=== PATIENT | female | born 1970 | race Caucasian/White ===

== ENCOUNTER 2016-11-15 17:57 | Inpatient (IN) | payer OTHER ==
[~2016-11-15] VITALS: Ht 167.6 cm; Wt 91.8 kg
--- NOTE | ~2016-11-15 | ECH ---
Transthoracic Echocardiography Report (TTE) Demographics Patient Name JANICE ESPINAL Date of Study 11/16/2016 Patient Number [id number] Visit Number [id number] Date of 1970 Room Number 430 Accession Number [id number] Gender Female Age 46 year(s) Referring Harvinder Sullivan Pasta Press Operator Patrizia Guzman [facility] Physician Physician Interpreting Nile [employer] Speculator Physician Supervising Ordering Physician Harvinder Sullivan MD, MD/P Nurse Stress Taper Operator Conclusions Summary Technically good exam. The estimated left ventricular ejection fraction is 15-20%. Global hypokinesis. The left ventricle is severly dilated . Normal right ventricular size. Mildly reduced right ventricular function. The left atrium is mildly dilated by LA volume index measurement. The right atrium is mildly dilated. Moderate mitral regurgitation by color Doppler. There is trivial aortic regurgitation by color Doppler. Moderate tricuspid regurgitation by color Doppler. There is mild pulmonary hypertension. The pulmonary pressure (RVSP) is 39 mmHg. Trivial pulmonic valve regurgitation by color Doppler. Recommendation The patient will be given the results of this study by the physician who ordered the exam. Procedure Type of Study TTE procedure:Echo Complete SF. Procedure Date Date: 11/16/2016 Start: 11:31 AM Technical Quality: Good visualization Indications:Shortness of breath and Pleural effusion. Additional Indications:elevated BNP Appropriate Use Criteria: 9 Height: 66 inches Weight: 218 pounds BSA: 2.07 m Rhythm: Within normal limits HR: 101 bpm BP: 45331/NaN mmHg M-Mode/2D Measurements LV Diastolic Dimension: 6.51 cm LV Systolic Dimension: 6.47 cm LV Septum Diastolic: 1.01 cm LV PW Diastolic: 0.81 cm AO Root Dimension: 2.2 cm Cardiac Output: 2.04 l/min LA Dimension: 4.47 cm Cardiac Index: 0.99 l/min*m RV Diastolic Dimension: 3.49 cm LA volume index: 39 ml/m LVOT: 1.79 cm LVOT VTI: 8.02 cm RV Base: 3.8 cm LV Stroke volume: 20.17 ml RV Mid: 2.2 cm LV Stroke volume index: 9.74 ml/m RV Length: 7.5 cm TAPSE: 1.4 cm TDI-S': 9 cm/s Doppler Measurements AV Peak Velocity: 0.7 m/s MV Peak E-Wave: 0.79 m/s AV Peak Gradient: 1.96 mmHg AV Mean Gradient: 1.29 mmHg LVOT Peak Velocity: 0.01 m/s AV Area (Continuity):1.55 cm PV Peak Velocity: 0.57 m/s TR Velocity:2.91 m/s PV Peak Gradient: 1.29 mmHg TR Gradient:33.87 mmHg Estimated PASP: 38.87 mmHg Estimated RAP:5 mmHg Estimated RVSP: 39 mmHg RA Area: 18.62 cm Findings Left Ventricle The left ventricle is severly dilated . Diastolic function indeterminate. Right Ventricle Normal right ventricular size. Mildly reduced right ventricular function. Left Atrium The left atrium is mildly dilated by LA volume index measurement. Right Atrium The right atrium is mildly dilated. Mitral Valve Normal mitral valve structure and function. Moderate mitral regurgitation by color Doppler. Aortic Valve Normal aortic valve structure and function. There is trivial aortic regurgitation by color Doppler. Tricuspid Valve Normal appearing tricuspid valve. Moderate tricuspid regurgitation by color Doppler. There is mild pulmonary hypertension. The pulmonary pressure (RVSP) is 39 mmHg. Pulmonic Valve Normal pulmonic valve structure and function. Trivial pulmonic valve regurgitation by color Doppler. Pericardial Effusion No evidence of pericardial effusion. Miscellaneous Visualized portions of the aortic root and ascending aorta appear normal in size. RVOT diameter 2.5cm. Contractility Score LV regional wall motion:(0-Non visualized 1-Normal 2-Hypokinesis 3-Akinesis 4-Dyskinesis 5-Aneurysm) Signature
--- NOTE | ~2016-11-15 | CATH ---
Cardiac Diagnostic Report Demographics Patient Name TEDDY Acevedo Gender Female Date of 1970 Age 46 year(s) Patient Number [id number] Date of Study 11/17/2016 Visit Number [id number] Room Number 430 Corporate ID Ht 167.64 cm Wt 98.88 kg Accession Number [id number] BSA 2.07 m kg/m Referring Harvinder Sullivan Primary Physician Physician MD Rene Sullivan APRN Performing Henry Bennett MD Secondary Physician Physician Diagnostic Henry Bennett MD Assisting Physician Physician Interventional Physician Java Development Team Lead Physician Findings and Conclusions Diagnostic Findings and Conclusion 1) Normal Coronary arteries 2) Elevated LVEDP 3) Reduced cardiac output related to her systolic heart failure Diagnostic Recommendations We will set Coby up to see one of our heart failure specialist for ongoing care and treatment of her systolic heart failure. Appointment at [facility] clinic 7 days post discharge, for a site check and follow up visit. Procedure Description The patient was brought to the diagnostic cardiac catheterization laboratory in the fasting, non-sedated state. Informed consent was obtained in the written and verbal form after the risks and benefits were explained. The patient had no further questions and agreed to proceed. The planned puncture-incision site(s) were shaved and prepped with ChloraPrep and draped in the usual sterile manner. Conscious sedation, supplemental oxygen, and pain control medications were delivered by a registered nurse under physician guidance. Surface ECG rhythm, blood pressure measurement, and pulse oximetry were monitored throughout the procedure. Arterial access. The access site was infiltrated with 1% lidocaine. The right radial vessel was entered with the Seldinger technique. A 6 Fr sheath was advanced into the vessel and used for catheter placement. Venous access. The right jugular access site was infiltrated with 2% lidocaine. Access was not able to be obtained, so, the right femoral vein access site was infiltrated with 2% lidocaine. The right femoral vein was entered with the Seldinger technique. A 7 Fr sheath was advanced into the vessel and used for catheter placement. Right heart catheterization. A [place] Caroline catheter was successfully advanced to the right atrium, right ventricle, pulmonary artery, and pulmonary artery wedge position under fluoroscopic guidance. Resting hemodynamics were obtained. Measurements included pressures, arterial and venous oxygen saturation samples, and cardiac output. The [place]eld[place]ia was removed without difficulty. Left heart catheterization. A pigtail catheter was advanced across the aortic valve to the left ventricle under fluoroscopic guidance. Resting hemodynamics were obtained. Selective left coronary angiography. A FL3.5 catheter was advanced into the left coronary vessel ostium under Fluoroscopic guidance. Contrast was injected by hand. Images were obtained in multiple projections. Selective right coronary angiography. A JR4 catheter was advanced into the right coronary vessel ostium under fluoroscopic guidance. Contrast was injected by hand. Images were obtained in multiple projections. Arterial and Venous hemostasis was achieved. A TR Band, with 10 cc air, was used on the radial site. Manual compression was held on the venous site. The patient was transferred back to her regular nursing floor room via cart accompanied by a nurse. The patient left the laboratory in stable condition. Diagnostic Cath Status: Urgent Procedure Procedure Type Diagnostic procedure:Angiography:, Right and Left Heart Cath, Coronary Angios Indications: Shortness of breath, Cardiomyopathy, Hyperlipidemia, Hypertension, Diabetes, systolic heart failure and Cardiomegaly. The procedure was explained in detail to the patient. Risks, complications and alternative treatments were reviewed. Written consent was obtained. Medications Reviewed with Patient prior to Procedure. Complications: No Complication. Angiographic Findings Dominance: Right Cardiac Arteries and Lesion Findings LMCA: Normal (0% Stenosis). LAD: Normal (0% Stenosis). LCx: Normal (0% Stenosis). RCA: Normal (0% Stenosis). Procedure Data Procedure Date Date: 11/17/2016Start: 08:04 AMEnd: 09:14 AM Entry Locations - Percutaneous access was performed through the Right Radial artery (Primary location). A 6 Fr sheath was inserted. Hemostasis was successfully obtained using a TR band. - Percutaneous access was performed through the Right Femoral vein. A 7 Fr sheath was inserted. Hemostasis was successfully obtained using Manual Compression. Procedure Medications Order and Administration + + +-------+-------+ !Time !Medication !Dosage !Route ! + + +-------+-------+ !11/17/2016 !SF Radial Cocktail: 200mcg Nitro, 2.5 mg ! !I.A. ! !08:10 AM !Verapamil, 5000u Heparin ! ! ! + + +-------+-------+ !11/17/2016 !Versed !1 mg !I.V. ! !08:14 AM ! ! ! ! + + +-------+-------+ !11/17/2016 !Fentanyl !25 mcg !I.V. ! !08:14 AM ! ! ! ! + + +-------+-------11/17/2016 !Fentanyl !50 mcg !I.V. ! !08:46 AM ! ! ! ! + + +-------+-------+ !11/17/2016 !Versed !1 mg !I.V. ! !08:46 AM ! ! ! ! + + +-------+-------+ !11/17/2016 !Versed !1 mg !I.V. ! !08:47 AM ! ! ! ! + + +-------+-------+ Devices Used - ACATH 6FR PIG 145 110CM CATHETERwas used for:Left ventriculography. - ACATH 6FR FL3.5 CATHETER 100CMwas used for:Left coronary angiography. - ACATH 6F FR4 CATHETER 100CMwas used for:Right coronary angiography. Contrast Material - Isovue 51361 ml Fluoroscopy Time: Diagnostic: 3:42 minutes. Total: 3:42 minutes. Fluoroscopy Dose: Diagnostic: 410 mGy. Total: 410 mGy. Estimated Blood Loss: 10 ml. Medical History Allergies - Cephalosporines. Risk Factors The patient risk factors include:hypercholesterolemia, hypertension, orally-treated diabetes mellitus, last creatinine: 1.3 mg/dl, creatinine clearance: 86.21 ml/min and dyslipidemia. Admission Data Admission Date: 11/15/2016 Admission Time: 05:57 PM Clinical Evaluation Leading to Procedure - The patient has been in a state of heart failure within the past two weeks. - The reason for the patient's laborer rags visit is evaluation of cardiomyopathy and/or evaluation of left ventricular systolic dysfunction. Diagnosed on 11/16/2016 02:00 PM. - The reason for the patient's laborer rags visit is evaluation of cardiomyopathy and/or evaluation of left ventricular systolic dysfunction. Hemodynamics Condition: Rest O2 Consumption: Estimated: 232.26Heart Rate: 102 bpm Oxygen Saturation +--------+-----+----+ +----+ + !Location!pCO2 !pO2 !% Saturation !Hgb !O2 Content ! +--------+-----+----+ +----+ + !LV ! ! !94.3 !11.5! ! +--------+-----+----+ +----+ + !LV ! ! !94.4 !11.5! ! +--------+-----+----+ +----+ + !PA ! ! !37.8 !11.5! ! +--------+-----+----+ +----+ + !PA ! ! !37.6 !11.5! ! +--------+-----+----+ +----+ + !AO ! ! !94.4 !11.5! ! +--------+-----+----+ +----+ + Pressures (mmHg) +-----+ + !Site !Pressure ! +-----+ + !AO !/ (-48) ! +-----+ + !RA !18 (14) ! +-----+ + !AO !/ (-50) ! +-----+ + !RV !49/ ,14 ! +-----+ + !AO !/ (-56) ! +-----+ + !PCW !29/35 (28) ! +-----+ + !AO !/ (-57) ! +-----+ + !PA !48/23 (37) ! +-----+ + !LV !107/13 ,24 ! +-----+ + !LV !115/14 ,27 ! +-----+ + !RV !53/9 ,20 ! +-----+ + !AO !108/78 (93) ! +-----+ + !LV !107/14 ,27 ! +-----+ + Cardiac Output + + +-----+ !Time !Cardiac Output (l/min) !Use ! + + +-----+ !11/17/2016 08:42 AM !2.9 !True ! + + +-----+ !11/17/2016 08:43 AM !2.65 !True ! + + +-----+ !11/17/2016 08:43 AM !2.93 !True ! + + +-----+ Cardiac Output +-------+ + + + !Method !CO (l/min) !CI (l/min/m2) !SV (ml) ! +-------+ + + + !Dragan !2.61 !1.3 !25.57 ! +-------+ + + + !Thermal!2.213790 !1.4 !26.92 ! +-------+ + + + Valve Gradients and Areas + +--------+--------+--------+---------+ + + !Valve !Peak !Mean !Area !Index !Flow !Source ! + +--------+--------+--------+---------+ + + !Aortic !0 !0 ! ! !235.56 !Dragan ! + +--------+--------+--------+---------+ + + !Aortic !0 !0 ! ! !255.11 !Thermal ! + +--------+--------+--------+---------+ + + Shunts Oxygen Values O2 Capacity 156.4 O2 Consumption 232.26 Flows (l/min) Qs 2.61 Qe/Qp 1 Qp 2.61 Qp/Qs 1 Qe 2.61 Vascular Resistance (dynes x sec x cm-5) + +-----+-----+-----+----+---------+-------+ !CO method !TSVR !SVR !TPVR !PVR !TPVR/TSVR!PVR/SVR! + +-----+-----+-----+----+---------+-------+ !Dragan !35.81!30.62!14.01!3.36!0.39 !0.11 ! + +-----+-----+-----+----+---------+-------+ !Thermal !33.07!28.27!12.93!3.11!0.39 !0.11 ! + +-----+-----+-----+----+---------+-------+ !Qp or Qs !35.81!30.62!14.01!3.36!0.39 !0.11 ! + +-----+-----+-----+----+---------+-------+ Signatures
--- NOTE | 2016-11-17 14:02 | CO ---
ADMIT: 11/15/2016 RM/LOC: 430 [facility] MR#: [id number] [address] [facility] [address] [place] [id number] JANICE ESPINAL [address] [facility] [address] [place] [address] Consultation SEX: F AGE: 46 : 1970 DATE OF CONSULTATION: 11/16/2016 ATTENDING PHYSICIAN: Luis Fernando Blanton CONSULTING PHYSICIAN: Ezekiel Dowd MD REASON FOR CONSULTATION: Shortness of breath. PRESENT ILLNESS: Janice is a pleasant 46-year-old female, who I was asked to see in consultation from Dr. Blanton regarding shortness of breath. Janice has no prior cardiac history but does have history of diabetes, hypertension, and hyperlipidemia. She states over the last 3 weeks she had progressive shortness of breath to the point she could only walk across the room and she would get short of breath. She presented to Dr. Blanton yesterday and was admitted to the hospital. She has noted increased lower extremity edema. She said last week her legs were very swollen, but they have improved. She denies any chest pain, but does have orthopnea and PND. She denies any recent illnesses or other change in her health. No recent change in her medications. PAST MEDICAL HISTORY: 1. History of hypertension. 2. Hyperlipidemia. 3. Diabetes mellitus. 4. History of depression. PAST SURGICAL HISTORY: History of appendectomy, history of lumpectomy, history of 2 prior C-sections, and history of a skin cancer removal. ALLERGIES: NO KNOWN DRUG ALLERGIES. MEDICATIONS: She is on: 1. Glipizide 5 mg daily. 2. Simvastatin 20 mg at bedtime. 3. Triamterene hydrochlorothiazide 37.5/25 mg daily. 4. Metformin 1000 mg twice a day. 5. Bupropion 150 mg daily. 6. Jolessa control daily. 7. Venlafaxine 150 mg daily. 8. Fish oil 3 times a day. 9. Vitamin C daily. 10.Multivitamin daily. 11.Calcium daily. 12.Omeprazole 20 mg daily. SOCIAL HISTORY: She is . She works at [employer]. She does not smoke. She denies any illicit drug use. She has an occasional drink. She has 4 children ages from 19-12. FAMILY HISTORY: She states that her father has a cardiomyopathy and has a ADMIT: 11/15/2016 RM/LOC: 430 [facility] MR#: [id number] [address] [id number] JANICE ESPINAL [address] [place] [address] [address] [place] [address] Consultation SEX: F AGE: 46 : 1970 defibrillator, he was diagnosed in his late 50s or early 60s with the cardiomyopathy. She states he has not had a heart attack or coronary artery disease. Her mom also has heart failure but does not have a defibrillator and she said it has been associated with anemia in her mother. Denies any family history of cancer or strokes. REVIEW OF SYSTEMS: GENERAL: Denies any fever, chills, or sweats. HEENT: Denies any visual changes. No decreased hearing. CARDIAC: As per HPI. PULMONARY: Denies any smoking history. No hemoptysis. She has been short of breath. GI: Denies any nausea, vomiting, diarrhea. GENITOURINARY: Denies any dysuria, hematuria. MUSCULOSKELETAL: Denies any joint pains or arthritis. SKIN: Denies any rashes. NEUROLOGIC: No history of TIA or stroke. PSYCHIATRIC: Does have history of depression. VASCULAR: Denies any claudication symptoms. She has had some lower extremity edema. All other systems reviewed and negative. PHYSICAL EXAMINATION: VITAL SIGNS: Blood pressure is 121/91, pulse 75, respirations 16, temperature 96.4, and oxygen 95% on room air. SKIN: [place], warm and dry. EYES: Sclerae clear. No xanthelasmas. ENT: Oral mucosa is pink and moist. No jugular venous distention or carotid bruits. CHEST: Respirations are even and unlabored. Lungs are clear to auscultation. HEART: Regular rate and rhythm. Normal S1, S2. No murmurs, rubs or gallops. ABDOMEN: Obese. No masses palpated. MUSCULOSKELETAL: Gait is normal. EXTREMITIES: She has mild edema bilaterally. PSYCHIATRIC: Alert and oriented. Mood and affect are appropriate. DIAGNOSTIC DATA: The TSH was 1.15, free T4 of 1.5. BNP was 7698. Hemoglobin A1c was 7. Troponin is negative. Creatinine was 1.3. CTA of the chest shows no evidence of pulmonary emboli. She has some nonspecific mediastinal and hilar adenopathy and a small right pleural effusion. IMPRESSION AND PLAN: 1. Acute systolic heart failure. 2. New onset cardiomyopathy with echo today showing an EF of 15% to 20% with a dilated left ventricle. 3. Diabetes mellitus. 4. Hyperlipidemia. 5. Hypertension. ADMIT: 11/15/2016 RM/LOC: 430 [facility] MR#: [id number] [address] [place] [id number] JANICE ESPINAL [address] [place] [address] [address] [place] [address] Consultation SEX: F AGE: 46 : 1970 RECOMMENDATIONS: Janice's echo shows severely decreased ejection fraction at approximately 15%-20% with a dilated left ventricle and global hypokinesis. She really has no precipitating factors and this has been pretty sudden onset over the last 3 weeks. I agree with the IV Lasix today, she is responding with diuresis this afternoon. I would recommend that we stop her hydrochlorothiazide and triamterene and we will add some low-dose Coreg at 3.125 mg twice a day. I would like to consider adding Entresto after we evaluate her further. We will plan to do a right and left heart catheterization in the morning given her severe cardiomyopathy and risk factors, with her diabetes, hypertension, and hyperlipidemia to exclude underlying coronary artery disease. We will also get her in for evaluation likely as an outpatient with our Advanced Heart failure team if she responds to medical therapy. If there is any worsening, we could consider transfer as an inpatient. We will follow along and amend our plan as her care progresses. I did discuss the risks and benefits of the right and left heart catheterization with her including but not limited to, stroke, heart attack, , bleeding, infection, renal failure. The patient understands these risks and agrees to proceed. Ezekiel Dowd MD/ dorene JOB #: [id number] CC: Luis Fernando Blanton, Attending Physician Darcy López, Family Physician
--- NOTE | 2016-11-21 12:02 | DS ---
ADMIT: 11/15/2016 RM/LOC: 430 [facility] MR#: [id number] [address] [facility] [address] [place], [place] [address] JANICE ESPINLA [address] [facility] [address] [place] [address] Discharge Summary SEX: F AGE: 46 : 1970 ADMISSION DATE: 11/15/2016 DISCHARGE DATE: 11/20/2016 HISTORY AND PHYSICAL: Please see the chart. LABORATORY AND X-RAY DATA: Please see the chart. CLINICAL COURSE: This 46-year-old female was admitted with marked dyspnea. Was found to have systolic congestive heart failure. The administrative support manager saw the patient in consultation. An echo showed a markedly depressed ejection fraction but no valvular heart disease, and the patient was treated with intravenous Lasix. DISCHARGE MEDICATION: 1. Entresto. 2. Corgard. 3. Effexor. 4. Klor-Con 20 mEq b.i.d. 5. Magnesium oxide was given 400 mg daily. 6. [place] fish oil was given 1000 mg t.i.d. 7. Protonix was continued. 8. Wellbutrin was continued. 9. At the time of discharge, her Lasix is changed to 40 mg orally b.i.d. She is to follow up with the administrative support manager in approximately 2 weeks, and she will see Darcy López in the clinic in approximately 2 weeks. FINAL DIAGNOSES: 1. Nonischemic cardiomyopathy with systolic congestive heart failure. 2. Type 2 diabetes mellitus. 3. History of depression. 4. GERD (gastroesophageal reflux disease). 5. Hyperlipidemia. 6. History of hypertension. Luis Fernando Blanton MD/ rosario JOB #: [id number] CC: Luis Fernando Blanton MD, Attending Physician Darcy López, Family Physician
[2016-11-21] MEDS ORDERED: ZOCOR DPS20 MG PO (13:45)
[2016-11-21] MEDS ORDERED: WELLBUTRIN XL150 MG PO (13:45)
[2016-11-21] MEDS ORDERED: JOLESSA 0.15 M1 EACH PO (13:45)
[2016-11-21] MEDS ORDERED: GLUCOTROL DPS5 MG PO (13:45)
[2016-11-21] MEDS ORDERED: OMEGA-3 DPS1000 MG PO (13:46)
[2016-11-21] MEDS ORDERED: VENLAFAXINE HC150 MG PO (13:46)
[2016-11-21] MEDS ORDERED: ASCORBIC ACID500 MG PO (13:46)
[2016-11-21] MEDS ORDERED: CALCIUM 600 +1 EA16 PO (13:47)
[2016-11-21] MEDS ORDERED: PRILOSEC DPS20 MG PO (13:47)
[2016-11-21] MEDS ORDERED: CARVEDILOL3.125 MG PO (13:47)
[2016-11-21] MEDS ORDERED: THERAPEUTIC MUL1 TAB PO (13:47)
[2016-11-21] MEDS ORDERED: ASA CHILDREN'S81 MG PO (13:48)
[2016-11-21] MEDS ORDERED: ENTRESTO 24 MG1 EACH PO (13:48)
[2016-11-21] MEDS ORDERED: LASIX DPS40 MG PO (13:48)
[2016-11-21] MEDS ORDERED: KLOR-CON M2020 ME1 PO (13:48)
--- NOTE | 2016-11-29 11:29 | HP ---
ADMIT: 11/15/2016 RM/LOC: 430 [facility] MR#: [id number] [address] [facility] [address] [place] [phone] JANICE ESPINAL Kristina [address] [facility] [address] [place] [address] History and Physical SEX: F AGE: 46 : 1970 DATE OF SERVICE: CHIEF COMPLAINT AND HISTORY OF PRESENT ILLNESS: This 46-year-old female was admitted to the hospital because of increasing dyspnea. The patient was seen in the office and found to have marked dyspnea and elevated BNP and she was unable to walk on a level floor less than 25 feet without significant shortness of breath and she did require a wheel chair. The patient was placed in the hospital, was found to have a markedly elevated BNP, congestive heart failure, and is admitted for further therapy. The patient has had no chest pain with this. She had been sick for approximately 2-1/2 weeks. She had no cough or hemoptysis, but has had a history of hypertension, hyperlipidemia, type 2 diabetes mellitus, and depression. PREVIOUS MEDICAL HISTORY: Generally, her health has been fair. MEDICATIONS: Include: 1. Glipizide 5 mg daily. 2. Simvastatin 20 mg daily. 3. Dyazide 37.5/25 daily. 4. Metformin 1000 mg b.i.d. 5. Bupropion 150 mg daily. 6. Jolessa control daily. 7. Venlafaxine 150 mg daily. 8. Fish oil t.i.d. 9. Vitamin C daily. 10.Multivitamin daily. 11.Calcium daily. 12.Omeprazole 20 mg daily. SOCIAL HISTORY: The patient is . She has been working. Takes an occasional drink of alcohol. FAMILY HISTORY: The patient has cardiomyopathy, a defibrillator present. REVIEW OF SYSTEMS: HEENT: The patient wears glasses, but no fever, chills, sinusitis. CARDIORESPIRATORY: See HPI. In addition, the patient has never been a smoker and no hemoptysis, pulmonary emboli. The only shortness of breath she has had has been recently. GASTROINTESTINAL: There has been no nausea, vomiting, constipation, bloody stools, or diarrhea. GENITOURINARY: No hematuria or dysuria. METABOLIC/ENDOCRINE: The patient has type 2 diabetes mellitus. No diabetic retinopathy. NEUROPSYCHIATRIC: The patient has a history of depression and has been taking antidepressants. The patient also has a history of hyperlipidemia and is currently taking a statin as well as her high blood pressure medications. PHYSICAL EXAMINATION: VITAL SIGNS: The initial blood pressure is mildly ADMIT: 11/15/2016 RM/LOC: 430 [facility] MR#: [id number] [address] [address] JANICE ESPINAL [address] [place] [address] [address] [place] [address] History and Physical SEX: F AGE: 46 : 1970 elevated with a diastolic of 91. HEENT: Head - normocephalic without exostoses. MAGDALENA. Throat within normal limits. NECK: The thyroid is not enlarged. CHEST: Clear to percussion and auscultation. HEART: There is a tachycardia present. No murmurs are heard. ABDOMEN: Soft, nontender. Liver is not enlarged. Spleen is not palpable. No abnormal masses are palpated. Femoral pulses are strong and equal bilaterally. GENITALIA: Normal. EXTREMITIES: No cyanosis, clubbing, or edema is present. ASSESSMENT: 1. Systolic heart failure. 2. Diabetes mellitus type 2. 3. Hypercholesterolemia. 4. Hypertension. PLAN: The patient is admitted because of the marked dyspnea and the fact that she is unable to take more than just a few steps without being markedly dyspneic, and the patient does have a family history of cardiomyopathy. I will be worried about with her severe reduction in ejection fraction of the risk of sudden and feel that she needs to be on telemetry until her congestive heart failure can be under better control. Luis Fernando Blanton MD/ dorene JOB #: [id number] CC: Luis Fernando Blanton MD, Attending Physician Darcy López, Family Physician
== END 2016-11-20 13:53 | disposition home or self-care (01) | DRG 286 ==
LOC: 4PCU 17:57
PROC: 4A023N8 Measurement of Cardiac Sampling and Pressure, Bilateral, Percutaneous Approach (ICD-10-PCS; principal; 2016-11-17)
PROC: B2111ZZ Fluoroscopy of Multiple Coronary Arteries using Low Osmolar Contrast (ICD-10-PCS; principal; 2016-11-17)
DX: I42.9 Cardiomyopathy, unspecified (principal); I50.21 Acute systolic (congestive) heart failure; I11.0 Hypertensive heart disease with heart failure; E11.9 Type 2 diabetes mellitus without complications; E78.5 Hyperlipidemia, unspecified; F32.9 Major depressive disorder, single episode, unspecified; Z79.84 Long term (current) use of oral hypoglycemic drugs; Z82.49 Family history of ischemic heart disease and other diseases of the circulatory system; E83.42 Hypomagnesemia; K21.9 Gastro-esophageal reflux disease without esophagitis